=== PATIENT | male | born 1940 | race Caucasian/White ===

== ENCOUNTER 2020-09-15 05:43 | Day surgery (SDC) | payer MEDICARE ==
[~2020-09-15] VITALS: Ht 185.4 cm; Wt 127.0 kg
[~2020-09-15 05:43] MED LIST: AEC81 PO; ALLO100T PO; AMLO-258 PO; ATOR20TA65 PO; CARV25TA PO; LEVO75CA5 PO; LOSA100T58 PO; MV-M1TAB20 PO; PANT40TA54 PO; TRIA1CAP6 PO; UBID100C45 PO; ZINC50TA71 PO
[2020-09-15] MEDS ORDERED: SODIUM CHLORIDE 0.9% 1000ML 1,000 ML IV ONE (06:13)
[2020-09-15 06:25] VITALS: BP 154/71
[2020-09-15] MEDS ORDERED: LIDOCAINE HCL 1% 20 ML VIAL ONE (07:48)
[2020-09-15] MEDS ORDERED: PROPOFOL 10 MG/ML 20ML VIAL IV ONE ×2 (07:48→08:01)
[2020-09-15 08:10] VITALS: BP 152/62
[2020-09-15 08:15] VITALS: BP 141/73
[2020-09-15 08:20] VITALS: BP 142/70
[2020-09-15 08:25] VITALS: BP 143/70
[2020-09-15 08:30] VITALS: BP 148/70
== END 2020-09-15 08:50 | disposition home or self-care (01) ==
LOC: ENDO 05:43 → DAH 05:43 → ENDO 08:50
PROVIDERS: ATTEND Internal Medicine Gastroenterology
DX: R14.0 Abdominal distension (gaseous) (principal); K29.50 Unspecified chronic gastritis without bleeding; I10 Essential (primary) hypertension; G47.33 Obstructive sleep apnea (adult) (pediatric); Z90.79 Acquired absence of other genital organ(s); E03.9 Hypothyroidism, unspecified; M10.9 Gout, unspecified; Z79.899 Other long term (current) drug therapy; Z79.82 Long term (current) use of aspirin; Z20.828 Contact with and (suspected) exposure to other viral communicable diseases
CPT/HCPCS: 43239; A4215 ×2; A4221; A4222; A4223; A4606; A4620; A4657; A4663; C9803; J2704; J7030; U0003